=== PATIENT | female | born 1995 | race Caucasian/White ===

== ENCOUNTER → 2016-11-17 | Outpatient (CLI) | payer OTHER ==
[~2016-11-17] MED LIST: ACET50TA PO; ADVI200T PO; ANUS2.5C2 PR; DOCU10CA PO; MOM30SS PO; MOTR200T44 PO; PRENTAB40 PO; TYLE325T5 PO
== END ==
LOC: M SMT 15:18
PROVIDERS: ATTEND Specialist
DX: N93.8 Other specified abnormal uterine and vaginal bleeding (principal)

== ENCOUNTER → 2017-11-30 | Outpatient (CLI) | payer OTHER ==
[2017-11-30 13:43] LABS: BASO % 0.3 % (0.0-1.0); EOS # 0.1 10^3/uL (0.0-0.50); EOS % 1.7 % (0.0-3.0); HEMATOCRIT 39.4 % (36.0-47.0); HEMOGLOBIN 12.8 g/dl (12.0-15.5); IMMATURE GRANULOCYTE % 0.1 % (0-3.0); LYMPH # 1.8 10^3/uL (1.5-6.5); LYMPH % 23.6 % (24.0-44.0); MEAN CORPUSCULAR HGB CONC 32.5 g/dl (32.0-36.5); MEAN CORPUSCULAR VOLUME 92.3 fl (80.0-96.0); MONO # 0.6 10^3/uL (0.0-0.8); MONO % 7.9 % (0.0-5.0); NEUTROPHILS # 5.1 10^3/uL (1.8-7.7); NEUTROPHILS % 66.4 % (36.0-66.0); PLATELET COUNT, AUTOMATED 306 10^3/uL (150-450); RED BLOOD COUNT 4.27 10^6/uL (4.00-5.40); RED CELL DISTRIBUTION WIDTH 12.3 % (11.5-14.5); WHITE BLOOD COUNT 7.7 10^3/uL (4.0-10.0)
[2017-11-30 14:47] LABS: HEPATITIS C VIRUS ABY INDEX < 0.0 INDEX (<0.8)
[2017-11-30 14:47] LABS: HBsAg Prenatal NEGATIVE (NEGATIVE); HIV 1&2 SCREEN CENTAUR NEGATIVE (NEGATIVE); RUBELLA IgG QUALITATIVE IMMUNE (IMMUNE)
[2017-11-30 16:02] LABS: CHLAMYDIA DNA AMPLIFICATION NEGATIVE (NEGATIVE); GC DNA AMPLIFICATION NEGATIVE (NEGATIVE)
== END ==
LOC: M SMT 09:02
DX: Z36.89 Encounter for other specified antenatal screening (principal)
CPT/HCPCS: 86762

== ENCOUNTER 2018-01-31 14:34 | Day surgery (SDC) | payer OTHER ==
[2018-01-31 15:00] LABS: HEMATOCRIT 41.1 % (36.0-47.0); HEMOGLOBIN 13.8 g/dl (12.0-15.5); MEAN CORPUSCULAR HEMOGLOBIN 30.3 pg (27.0-33.0); MEAN CORPUSCULAR HGB CONC 33.6 g/dl (32.0-36.5); MEAN CORPUSCULAR VOLUME 90.3 fl (80.0-96.0); PLATELET COUNT, AUTOMATED 285 10^3/uL (150-450); RED BLOOD COUNT 4.55 10^6/uL (4.00-5.40); RED CELL DISTRIBUTION WIDTH 12.3 % (11.5-14.5)
[2018-01-31] MEDS: DOXYCYCLINE HYCLATE 100 MG TAB PO (15:00)
[2018-01-31] MEDS ORDERED: MIDAZOLAM INJ 2 MG/2 ML VIAL (J2250) As Ordered (15:13)
[2018-01-31] MEDS ORDERED: PROPOFOL 200 MG/20 ML VIAL As Ordered (15:13)
[2018-01-31] MEDS ORDERED: fentaNYL 100 MCG/2 ML INJECTION (J3010) As Ordered ×2 (15:13→16:12)
[2018-01-31] MEDS ORDERED: LIDOCAINE 2% INJ 100 MG/5 ML SYRINGE As Ordered (15:13)
[2018-01-31] MEDS ORDERED: LIDOCAINE 2% INJ 100 MG/5 ML SDV (FOR ANES.) As Ordered (15:15)
[2018-01-31] MEDS ORDERED: METOCLOPRAMIDE INJ 10MG/2ML VIAL (J2765) As Ordered (15:48)
[2018-01-31] MEDS ORDERED: ONDANSETRON 4MG/2ML VIAL (J2405) As Ordered (16:06)
[2018-01-31] MEDS ORDERED: dexameTHASONE 4 MG/ML 1ML VIAL (J1100) As Ordered ×2 (16:06)
[2018-01-31] MEDS ORDERED: PHENYLephrine HCL 500 MCG/5 ML (100MCG/ML) SYRINGE (J2370) As Ordered (16:16)
[2018-01-31] MEDS: miSOPROStol 200 MCG TAB (S0191) As Ordered (16:48)
[2018-01-31] MEDS ORDERED: HYDROmorphone HCL 2 MG/ML 1ML VIAL (J1170) As Ordered (16:56)
[2018-01-31] MEDS ORDERED: ONDANSETRON 4MG/2ML VIAL (J2405) IV (17:15)
[2018-01-31] MEDS ORDERED: LR 1,000 ML IV (17:15)
[2018-01-31] MEDS ORDERED: fentaNYL 100 MCG/2 ML INJECTION (J3010) IV (17:15)
[2018-01-31] MEDS: NORCO, ANEXSIA 5/325MG TABLET (HYDROcodone/ACETAMINOPHEN) PO (17:22)
[2018-01-31] MEDS ORDERED: PERCOCET 5MG/325MG TAB PO (17:30)
[2018-01-31] MEDS ORDERED: KETOROLAC 30 MG/ML VIAL (J1885) IV (18:00)
== END 2018-01-31 20:04 | disposition home or self-care (01) ==
LOC: M SDC 14:34
DX: O02.1 Missed abortion (principal); E66.9 Obesity, unspecified; Z68.41 Body mass index [BMI] 40.0-44.9, adult
CPT/HCPCS: 59821

== ENCOUNTER → 2018-02-21 | Outpatient (CLI) | payer OTHER ==
[~2018-02-21] MED LIST changes: -ACET50TA PO; +MAPA500T2 PO; +MISO200T56 PO; +PERCOCET PO
[2018-02-21 13:08] LABS: FREE T4 1.09 NG/DL (0.76-1.46); THYROID STIMULATING HORMONE 3.41 uIU/ML (0.358-3.740)
[2018-02-24 00:07] LABS: ANTI DOUBLE STRAND-DNA AB 1 IU/mL (0-9); ANTI THROMBIN 3 ANTIGEN IMMUNO 83 % (72-124); ANTI THROMBIN 3 FUNCT ACTIVITY 97 % (75-135); CARDIOLIPIN IGA ANTIBODY <9 APL U/mL (0-11); CARDIOLIPIN IGG ANTIBODY <9 GPL U/mL (0-14); CARDIOLIPIN IGM ANTIBODY 12 MPL U/mL (0-12); PROTEIN C FUNCTIONAL ACTIVITY 117 % (73-180); PROTEIN S FUNCTIONAL ACTIVITY 57 % (63-140); SSA SJOGRENS A <0.2 AI (0.0-0.9); SSB SJOGRENS B <0.2 AI (0.0-0.9)
== END ==
LOC: M ADAMS 08:59
PROVIDERS: ATTEND Obstetrics & Gynecology
DX: N96 Recurrent pregnancy loss (principal)

== ENCOUNTER → 2018-07-23 | Outpatient (CLI) | payer OTHER | LOC: M LAB 09:22 | PROVIDERS: ATTEND Obstetrics & Gynecology | DX: E28.9 Ovarian dysfunction, unspecified (principal) ==

== ENCOUNTER → 2018-08-24 | Outpatient (REF) | payer OTHER | LOC: M LABDRWAD 12:24 | PROVIDERS: ATTEND Obstetrics & Gynecology | DX: N96 Recurrent pregnancy loss (principal) ==

== ENCOUNTER → 2018-12-05 | Outpatient (REF) | payer OTHER | LOC: M LABDRWAD 16:00 | PROVIDERS: ATTEND Obstetrics & Gynecology | DX: N91.2 Amenorrhea, unspecified (principal) ==

== ENCOUNTER → 2018-12-25 | Outpatient (CLI) | payer OTHER ==
[~2018-12-25] MED LIST changes: +ISOVUE-370 76% 100ML VIAL (Q9967) As Ordered ONE
--- NOTE | 2018-12-25 17:11 | REP ---
Hysterosalpingography: 10 views. History: Secondary infertility. Findings: A normal shape and size the endometrial cavity is observed with contrast filling periods. Sequential films demonstrate bilateral and fairly symmetric filling of the isthmic and ampullary segments of the fallopian tubes. Bilateral peritoneal spillage is confirmed. No filling defect is seen within the endometrium. Impression: Bilateral tubal patency is confirmed. Normal hysterosalpingography. Fluoroscopy time is 0.8 minutes. Electronically Signed by Jon Melendez MD 12/25/2018 05:14 P
== END ==
LOC: M RADPRO 11:53
PROVIDERS: ATTEND Obstetrics & Gynecology
DX: N97.0 Female infertility associated with anovulation (principal)
CPT/HCPCS: 58340; 74740; Q9967

== ENCOUNTER → 2019-01-05 | Outpatient (REF) | payer OTHER ==
[~2019-01-05] MED LIST changes: -ISOVUE-370 76% 100ML VIAL (Q9967) As Ordered ONE
[2019-01-05 16:29] LABS: PROGESTERONE 10.79 NG/ML
== END ==
LOC: M LABDRWAD 15:56
PROVIDERS: ATTEND Obstetrics & Gynecology
DX: N96 Recurrent pregnancy loss (principal)

== ENCOUNTER → 2019-02-12 | Outpatient (CLI) | payer OTHER | LOC: M LAB 14:29 | PROVIDERS: ATTEND Obstetrics & Gynecology | DX: O36.80X0 Pregnancy with inconclusive fetal viability, not applicable or unspecified (principal); Z3A.00 Weeks of gestation of pregnancy not specified ==

== ENCOUNTER → 2019-02-15 | Outpatient (CLI) | payer OTHER | LOC: M LAB 09:53 | PROVIDERS: ATTEND Obstetrics & Gynecology | DX: O36.80X0 Pregnancy with inconclusive fetal viability, not applicable or unspecified (principal); Z3A.00 Weeks of gestation of pregnancy not specified ==

== ENCOUNTER → 2019-03-07 | Outpatient (CLI) | payer OTHER ==
[2019-03-07 13:35] LABS: BASO % 0.4 % (0.0-1.0); EOS # 0.1 10^3/uL (0.0-0.5); EOS % 0.9 % (0.0-3.0); HEMATOCRIT 40.7 % (36.0-47.0); HEMOGLOBIN 12.6 g/dl (12.0-15.5); LYMPH # 1.6 10^3/uL (1.5-5.0); LYMPH % 21.2 % (24.0-44.0); MEAN CORPUSCULAR HEMOGLOBIN 28.5 pg (27.0-33.0); MEAN CORPUSCULAR VOLUME 92.1 fl (80.0-96.0); MONO # 0.5 10^3/uL (0.0-0.8); MONO % 6.3 % (0.0-5.0); NEUTROPHILS # 5.2 10^3/uL (1.5-8.5); NEUTROPHILS % 70.1 % (36.0-66.0); PLATELET COUNT, AUTOMATED 310 10^3/uL (150-450); RED BLOOD COUNT 4.42 10^6/uL (4.00-5.40); WHITE BLOOD COUNT 7.4 10^3/uL (4.0-10.0)
[2019-03-07 14:23] LABS: HEPATITIS C VIRUS ABY INDEX < 0.0 INDEX (<0.8); HIV 1&2 SCREEN CENTAUR NEGATIVE (NEGATIVE); RUBELLA IgG QUALITATIVE IMMUNE (IMMUNE)
[2019-03-07 15:05] LABS: CHLAMYDIA DNA AMPLIFICATION NEGATIVE (NEGATIVE); GC DNA AMPLIFICATION NEGATIVE (NEGATIVE)
== END ==
LOC: M PLALAB 08:54
PROVIDERS: ATTEND Obstetrics & Gynecology
DX: Z34.01 Encounter for supervision of normal first pregnancy, first trimester (principal)

== ENCOUNTER → 2019-04-30 | Outpatient (CLI) | payer OTHER | LOC: M WHC 11:22 | PROVIDERS: ATTEND Obstetrics & Gynecology | DX: Z34.01 Encounter for supervision of normal first pregnancy, first trimester (principal) ==

== ENCOUNTER → 2019-06-01 | Outpatient (CLI) | payer OTHER ==
--- NOTE | 2019-06-01 17:33 | REP ---
OB ULTRASOUND: Real-time sonographic evaluation of the gravid uterus is performed. There is a single living intrauterine gestation. Estimated gestational age based on today's ultrasound 19 weeks 3 days, EDC 10/23/2019. BPD 42 mm = 18 weeks 5 days HC 168 mm = 19 weeks 3 days AC 142 mm = 19 weeks 4 days FL 32 mm = 20 weeks 0 days HC/AC ratio 1.18, within normal range of 1.06 to 1.25. Cephalic index 0.67 is slightly below normal range of 0.70 to 0.86. Estimated weight 309 grams, 57th percentile. Cervix is closed and measures 4.2 cm in length. heart rate 153 beats per minute. SEEN/GROSSLY UNREMARKABLE Lateral ventricles yes Posterior fossa yes Upper lip no Four-chamber heart no LVOT no RVOT no Stomach yes Cord insertion yes Three vessel cord yes Kidneys yes Bladder yes Spine no position: Breech Placenta: Posterior and grade 1 with no previa or abruption. Amniotic fluid: Within normal limits.
== END ==
LOC: M WHC 09:47
PROVIDERS: ATTEND Obstetrics & Gynecology
DX: Z34.01 Encounter for supervision of normal first pregnancy, first trimester (principal)

== ENCOUNTER → 2019-06-29 | Outpatient (CLI) | payer OTHER ==
--- NOTE | 2019-06-29 17:45 | REP ---
OB ULTRASOUND: Real-time sonographic evaluation of gravid uterus performed. There is a single living intrauterine gestation. The estimated gestational age is 23 weeks 6 days, EDC 10/20/2019. Today's measurements indicate appropriate growth. BPD 57 mm = 23 weeks 3 days, 38th percentile HC 214 mm = 23 weeks 3 days, 35th percentile AC 181 mm = 22 weeks 6 days, 29th percentile Femur length 45 mm = 24 weeks 6 days, 70th percentile HC/AC ratio 1.18 within normal range, 1.03-1.22. Estimated weight 621 grams, 39th percentile. Cervix is closed and measures 3.5 cm in length. heart rate 156 beats per minute. Today's measurements indicate appropriate growth. Visualized anatomy includes upper lip, left ventricular outflow tract, stomach, cord insertion, kidneys, bladder, and spine, which are all grossly unremarkable. position vertex. Placenta posterior and grade 1 with no previa or abruption. Amniotic fluid within normal limits.
== END ==
LOC: M WHC 08:18
PROVIDERS: ATTEND Advanced Practice Midwife
DX: Z34.82 Encounter for supervision of other normal pregnancy, second trimester (principal); Z3A.23 23 weeks gestation of pregnancy

== ENCOUNTER → 2019-07-25 | Outpatient (REF) | payer OTHER ==
[2019-07-25 11:34] LABS: HEMATOCRIT 33.9 % (36.0-47.0); HEMOGLOBIN 10.7 g/dl (12.0-15.5); MEAN CORPUSCULAR HEMOGLOBIN 28.7 pg (27.0-33.0); MEAN CORPUSCULAR HGB CONC 31.6 g/dl (32.0-36.5); MEAN CORPUSCULAR VOLUME 90.9 fl (80.0-96.0); PLATELET COUNT, AUTOMATED 271 10^3/uL (150-450); RED BLOOD COUNT 3.73 10^6/uL (4.00-5.40); WHITE BLOOD COUNT 7.2 10^3/uL (4.0-10.0)
== END ==
LOC: M PLALAB 08:46
PROVIDERS: ATTEND Advanced Practice Midwife
DX: O99.212 Obesity complicating pregnancy, second trimester (principal)

== ENCOUNTER → 2019-08-28 | Outpatient (CLI) | payer OTHER ==
[~2019-08-28] MED LIST changes: +DOCU100C16 PO; +ESGI1CAP PO; +IBUP80TA PO
[2019-08-28 17:30] LABS: HEMATOCRIT 33.6 % (36.0-47.0); HEMOGLOBIN 10.8 g/dl (12.0-15.5); MEAN CORPUSCULAR HEMOGLOBIN 28.9 pg (27.0-33.0); MEAN CORPUSCULAR HGB CONC 32.1 g/dl (32.0-36.5); MEAN CORPUSCULAR VOLUME 89.8 fl (80.0-96.0); PLATELET COUNT, AUTOMATED 282 10^3/uL (150-450); RED BLOOD COUNT 3.74 10^6/uL (4.00-5.40)
[2019-08-28 17:49] LABS: CREATININE,RANDOM URINE 60.7 MG/DL; TOTAL PROTEIN,RANDOM URINE 11.1 MG/DL (0.0-12.0)
[2019-08-28 17:55] LABS: ALT/SGPT 29 U/L (12-78); BILIRUBIN,TOTAL 0.2 MG/DL (0.2-1.0); CREATININE FOR GFR 0.65 MG/DL (0.55-1.30); GLOMERULAR FILTRATION RATE > 60.0 (>60); LDH LACTATE DEHYDROGENASE 67 U/L (84-246); URIC ACID 3.8 MG/DL (2.6-6.0)
== END ==
LOC: M PLALAB 14:54
PROVIDERS: ATTEND Specialist
DX: O16.9 Unspecified maternal hypertension, unspecified trimester (principal)

== ENCOUNTER → 2019-08-29 | Outpatient (CLI) | payer OTHER ==
--- NOTE | 2019-08-29 23:23 | REP ---
REASON: Followup growth. Multiple ultrasonographic images of the gravid uterus show a single living intrauterine gestation in the cephalic presentation. Doppler interrogation of the heart shows a heart rate of 136 beats per minute. The placenta is posterior and not low lying. The subjective amniotic fluid volume is within normal limits. The cervix measures 3.9 cm in length and is closed. Evaluation of the maternal adnexal spaces showed no abnormalities. CHART: BPD 8.5 cm = 34 weeks 3 days HC 31.5 cm = 35 weeks 2 days AC 30.6 cm = 34 weeks 4 days FL 6.4 cm = 33 weeks 1 day The estimated weight is 2379 grams, which is at the 87th percentile for a 32-week 1-day gestational age and 77th percentile for a 32-week 4-day gestational age. The calculated amniotic fluid index is 11.3 with an expected range 8.6 to 24.2. IMPRESSION: Single living intrauterine gestation, as described above, with an estimated gestational age of 33 weeks 6 days via composite criteria and an estimated date of delivery of 10/11/2019 by today's exam.
== END ==
LOC: M PLAIMG 13:54
PROVIDERS: ATTEND Advanced Practice Midwife
DX: O13.3 Gestational [pregnancy-induced] hypertension without significant proteinuria, third trimester (principal); Z3A.33 33 weeks gestation of pregnancy

== ENCOUNTER 2019-09-05 10:14 | Outpatient (CLI) | payer OTHER ==
[~2019-09-05] VITALS: Ht 162.6 cm; Wt 135.0 kg
[2019-09-05] VITALS (19 sets, daily range): BP systolic 106–159; BP diastolic 61–118
[~2019-09-05 10:14] MED LIST changes: -DOCU100C16 PO; -ESGI1CAP PO; -IBUP80TA PO
[2019-09-05] MEDS ORDERED: ESGI1CAP PO (10:34)
[2019-09-05] MEDS ORDERED: BETAMETHASONE SOLUSPAN 6MG/ML 5ML VIAL (J0702 PER 3MG) IM ONE (11:15)
[2019-09-05] MEDS ORDERED: ACETAMINOPHEN 500 MG TAB PO ONE (11:15)
[2019-09-05 12:12] LABS: HEMATOCRIT 33.2 % (36.0-47.0); HEMOGLOBIN 10.5 g/dl (12.0-15.5); MEAN CORPUSCULAR HEMOGLOBIN 28.2 pg (27.0-33.0); MEAN CORPUSCULAR HGB CONC 31.6 g/dl (32.0-36.5); PLATELET COUNT, AUTOMATED 278 10^3/uL (150-450); RED BLOOD COUNT 3.73 10^6/uL (4.00-5.40); WHITE BLOOD COUNT 7.5 10^3/uL (4.0-10.0)
[2019-09-05 12:35] LABS: CREATININE,RANDOM URINE 42.6 MG/DL; TOTAL PROTEIN,RANDOM URINE 10.2 MG/DL (0.0-12.0)
[2019-09-05 12:40] LABS: ALT/SGPT 35 U/L (12-78); BILIRUBIN,TOTAL 0.1 MG/DL (0.2-1.0); CREATININE FOR GFR 0.58 MG/DL (0.55-1.30); GLOMERULAR FILTRATION RATE > 60.0 (>60); LDH LACTATE DEHYDROGENASE 71 U/L (84-246)
--- NOTE | 2019-09-05 16:17 | IPN ---
DATE: 09/05/2019 Clarissa is a 24-year-old, 5, para 2-0-2-2. She is at 33 weeks and 4/7 days with an estimated date of confinement (EDC) of 10/20/2019 based on last menstrual period, confirmed by first trimester ultrasound. She was sent to labor and delivery following appointment in the office for continued blood pressure monitoring and observation. She was seen by Dr. Hayes in the office with a complaint of a headache and elevated blood pressures. She had a care initiated at [facility] in the first trimester. course is complicated by a history of gestational hypertension and a current diagnosis of hypertension. She does report that her headache has resolved following administration of Tylenol. She denies visual disturbances, epigastric pain, right upper quadrant discomfort. She denies leakage of fluid, vaginal bleeding and contractions. The fetus has been active. OBSTETRICAL HISTORY: October 2013, spontaneous vaginal delivery, male fetus, 9 pounds 8 ounces, following induction. 12/2014, 37 week delivery, 6 pound 7 ounce female, vaginal delivery following induction for gestational hypertension. November 2016, spontaneous miscarriage. January 2018, spontaneous miscarriage. PAST MEDICAL HISTORY: Gestational hypertension. SURGERIES: Appendectomy, tonsillectomy, adenectomy, D and E. FAMILY HISTORY: Kidney disease, psychiatric disorder, thyroid dysfunction. SOCIAL HISTORY: She is . She is a nonsmoker. Denies alcohol and drug use. No history of sexually transmitted infections. ALLERGIES: To CEFZIL. CURRENT MEDICATIONS: - vitamins - Esgic as needed OBJECTIVE: Upon arrival to labor and delivery, she was found to have normotensive blood pressure. She did have two isolated episodes of severe range blood pressure during a time where she was crying and upset. Following that time for the last 4 hours her blood pressures have been in the normotensive range. Blood pressures range 120s/70s. She is alert and oriented times three. She is in no apparent distress. heart rate is 150 with moderate variability, positive accelerations, negative decelerations. There is no contractions. Sterile vaginal exam was deferred. Labs were ordered. Her pre-eclamptic profile remains stable. Her AST 22, ALT 35, LDH 71, uric acid 4.0, creatinine is 0.58. Her spot urine for protein with a creatinine protein ratio of 0.24 it is slightly increased from her labs 8 days ago. Her CBC with a hemoglobin of 10.5, hematocrit 33.2 and platelets are 278. She did receive one injection of betamethasone 12 mg IM. ASSESSMENT: Intrauterine at 33-4/7 days, heart rate category 1, gestational hypertension. PLAN: Per consult with Dr. Russell Glover as well as Dr. Julien Hayes, may discharge the patient home today. She is to return to labor and delivery at 12 noon tomorrow for her second betamethasone injection. Dr. 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 She is to keep her next scheduled appointment. I did review signs and symptoms of labor, movement counts, danger signs related to worsening preeclampsia/gestational hypertension. I reviewed access to care. The patient has had all her questions answered and desires discharge home.
== END 2019-09-05 16:03 | disposition home or self-care (01) ==
LOC: M LDO 10:14
PROVIDERS: ATTEND Advanced Practice Midwife
DX: O13.3 Gestational [pregnancy-induced] hypertension without significant proteinuria, third trimester (principal); Z3A.33 33 weeks gestation of pregnancy
CPT/HCPCS: 36415; 59025; 82247; 82565; 82570; 83615; 84156; 84450; 84460; 84550; 85027; 87081; 96372; G0378; G0463; J0702

== ENCOUNTER → 2019-09-18 | Outpatient (CLI) | payer OTHER ==
[~2019-09-18] MED LIST changes: +DOCU100C16 PO; +ESGI1CAP PO; +IBUP80TA PO
--- NOTE | 2019-11-09 11:32 | REP ---
OBSTETRIC ULTRASOUND This report was delayed due to a protracted episode of network disruption experienced by this facility. FINDINGS: Scanning through the gravid uterus demonstrates a viable single intrauterine gestation in a cephalic lie. The placenta is posterior grade 2 without evidence of placenta previa or abruption. Amniotic fluid is subjectively normal. ABENA is normal at 12.66 cm. heart rate is recorded at 152 beats per minute. Left-sided stomach, kidneys, and bladder are identified today. These structures are unremarkable. BIOMETRY CHART: BPD 92 mm 37 weeks 3 days Head Circumference 329 mm 37 weeks 3 days Abdominal Circumference 322 mm 36 weeks 2 days Femur Length 68 mm 35 weeks 0 days Humeral Length 60 mm 35 weeks 1 day Estimated Weight 2851 g 68th percentile IMPRESSION: Viable single intrauterine gestation at 36 weeks 4 days. By todays criteria, estimated date of delivery (LIZZY) 10/12/2019. MTDD
== END ==
LOC: M WHC 17:48
PROVIDERS: ATTEND Advanced Practice Midwife
DX: O10.919 Unspecified pre-existing hypertension complicating pregnancy, unspecified trimester (principal)

== ENCOUNTER → 2019-09-19 | Outpatient (REF) | payer OTHER | LOC: M SFHCWAGY 09:25 | PROVIDERS: ATTEND Advanced Practice Midwife | DX: Z34.83 Encounter for supervision of other normal pregnancy, third trimester (principal) ==

== ENCOUNTER 2019-09-29 08:15 | Inpatient (IN) | payer OTHER ==
[~2019-09-29 08:15] MED LIST changes: -DOCU100C16 PO; -IBUP80TA PO
[2019-09-29] MEDS ORDERED: miSOPROStol 50 MCG 1/2 TAB (S0191) As Ordered ONE ×4 (09:39→22:11)
[2019-09-29] MEDS ORDERED: LABETALOL 200 MG TAB As Ordered ONE (20:44)
[2019-09-30] MEDS ORDERED: OXYTOCIN 30 UNITS IN 0.9% NaCl 500ML IV BAG (J2590) As Ordered ONE (02:22)
[2019-09-30] MEDS ORDERED: LABETALOL 200 MG TAB As Ordered ONE (09:46)
[2019-09-30] MEDS ORDERED: ACETAMINOPHEN 500 MG TAB As Ordered ONE (11:53)
[2019-09-30] MEDS ORDERED: FENTANYL 2MCG/ML ROPIVACAINE 0.2% IN 0.9% NACL 100ML IVBAG As Ordered ONE ×2 (13:19→22:31)
[2019-09-30] MEDS ORDERED: ePHEDrine SULFATE 25 MG/5 ML(5MG/ML) SYRINGE As Ordered ONE (16:55)
[2019-10-01] MEDS ORDERED: CLINDAMYCIN 900 MG/50 ML PREMIX BAG As Ordered ONE (06:37)
[2019-10-01] MEDS ORDERED: BICITRA 30ML SOLN UDC As Ordered ONE (06:38)
[2019-10-01] MEDS ORDERED: ONDANSETRON 4MG/2ML VIAL As Ordered ONE ×2 (08:05→11:13)
[2019-10-01] MEDS ORDERED: PHENYLephrine HCL 500 MCG/5 ML (100MCG/ML) SYRINGE (J2370) As Ordered ONE (08:05)
[2019-10-01] MEDS ORDERED: OXYTOCIN INJ 10 UNITS/ML VIAL (J2590) As Ordered ONE (08:05)
[2019-10-01] MEDS ORDERED: fentaNYL 100 MCG/2 ML INJECTION (J3010) As Ordered ONE (08:05)
[2019-10-01] MEDS ORDERED: dexameTHASONE 4 MG/ML 1ML VIAL (J1100 PER 1MG) As Ordered ONE (08:05)
[2019-10-01] MEDS ORDERED: LIDOCAINE 2% W/EPINEPHRINE 20ML VIAL **PRES FREE As Ordered ONE (08:05)
[2019-10-01] MEDS ORDERED: MORPHINE PRES-FREE INJ 10 MG/10 ML VIAL (J2274) As Ordered ONE (08:21)
[2019-10-01] MEDS ORDERED: KETOROLAC 60MG 2ML VIAL As Ordered ONE (08:29)
[2019-10-01] MEDS ORDERED: OXYTOCIN 30 UNITS IN 0.9% NaCl 500ML IV BAG (J2590) As Ordered ONE (09:21)
[2019-10-01] MEDS ORDERED: METOCLOPRAMIDE INJ 10MG/2ML VIAL (J2765 PER 1) As Ordered ONE (12:27)
[2019-10-01] MEDS ORDERED: KETOROLAC 30 MG/ML 1ML VIAL As Ordered ONE (19:27)
[2019-10-01] MEDS ORDERED: AZTREONAM ONE (21:00)
[2019-10-02] MEDS ORDERED: KETOROLAC 30 MG/ML 1ML VIAL As Ordered ONE ×3 (01:02→13:32)
[2019-10-02] MEDS ORDERED: MEASLES,MUMPS,RUBELLA VACCINE INJ (MMR-II) (90707) SQ SCH (16:15)
[2019-10-02] MEDS ORDERED: MOM 30ML SUSPENSION UDC PO PRN (16:15)
[2019-10-02] MEDS ORDERED: DOCUSATE SODIUM 100 MG CAP PO PRN (16:15)
[2019-10-02] MEDS ORDERED: PERCOCET 5MG/325MG TAB PO PRN ×2 (16:15)
[2019-10-02] MEDS ORDERED: RHOGAM 300 MCG (1500 IU) INJ (J2790) IM SCH (16:15)
[2019-10-02] MEDS ORDERED: METHYLERGONOVINE MALEATE 0.2 MG TAB PO PRN (16:15)
[2019-10-02] MEDS ORDERED: ANUSOL HC CREAM 30GM TOP PRN (16:15)
[2019-10-02] MEDS ORDERED: PERCOCET 5MG/325MG TAB As Ordered ONE (19:01)
[2019-10-02] MEDS ORDERED: IBUPROFEN 800 MG TAB ONE (21:27)
[2019-10-02] MEDS: IBUPROFEN 800 MG TAB PO SCH (21:30)
[2019-10-02 22:00] VITALS: BP 124/70
[2019-10-03 02:00] VITALS: BP 122/59
[2019-10-03 06:00] VITALS: BP 119/56
[2019-10-03] MEDS: IBUPROFEN 800 MG TAB PO SCH (06:05)
[2019-10-03] MEDS ORDERED: PERCOCET PO (08:11)
[2019-10-03] MEDS ORDERED: DOCU100C16 PO (08:11)
[2019-10-03] MEDS ORDERED: IBUP80TA PO (08:11)
[2019-10-03 11:55] LABS: HEMATOCRIT 26.5 % (36.0-47.0); HEMOGLOBIN 8.1 g/dl (12.0-15.5); MEAN CORPUSCULAR HEMOGLOBIN 27.7 pg (27.0-33.0); MEAN CORPUSCULAR HGB CONC 30.6 g/dl (32.0-36.5); MEAN CORPUSCULAR VOLUME 90.8 fl (80.0-96.0); PLATELET COUNT, AUTOMATED 238 10^3/uL (150-450); RED BLOOD COUNT 2.92 10^6/uL (4.00-5.40); WHITE BLOOD COUNT 7.1 10^3/uL (4.0-10.0)
[2019-10-07 23:44] LABS: HEMATOCRIT 30.3 % (36.0-47.0); HEMOGLOBIN 9.8 g/dl (12.0-15.5); MEAN CORPUSCULAR HGB CONC 32.3 g/dl (32.0-36.5); MEAN CORPUSCULAR VOLUME 86.6 fl (80.0-96.0); PLATELET COUNT, AUTOMATED 282 10^3/uL (150-450); WHITE BLOOD COUNT 7.6 10^3/uL (4.0-10.0)
--- NOTE | 2019-11-19 14:18 | HPE ---
DATE OF ADMISSION: 09/29/2019 REASON FOR ADMISSION: Induction of labor HISTORY OF PRESENT ILLNESS: Ms. Oh is a 24-year-old, 5, para 2, who presents at 37 weeks 0 days estimated gestational age for induction of labor secondary to gestational hypertension. Her course has been remarkable for gestational hypertension. She was diagnosed at 32 weeks. She was started on labetalol 200 mg twice a day secondary to severely elevated blood pressures. She has been normotensive on the oral labetalol. Otherwise, her course has been unremarkable. She initiated care in the first trimester; it has been appropriate throughout. Her gestational hypertension was managed with antepartum testing weekly. PAST MEDICAL HISTORY: None PAST SURGICAL HISTORY: She has had an appendectomy, tonsillectomy, adenoidectomy and dilation and evacuation. MEDICATIONS: Include labetalol. ALLERGIES: She has allergies to Cefzil. SOCIAL HISTORY: She is a mother of two, lives with her children and her . She is a nonsmoker. Denies any alcohol, tobacco or drug use during her . OBSTETRICAL HISTORY: She is a 5, para 2. She has had two term vaginal deliveries. She is proven at 9 pounds, 8 ounces. Her second was also complicated by gestational hypertension. PHYSICAL EXAMINATION: Her vital signs are stable. She is afebrile. She has a category 1 heart tracing, heart rate 150s, moderate variability, spontaneous accelerations, no decelerations. Rare contractions on tocometer. General appearance: She is well appearing, in no acute distress. Lungs clear to auscultation bilaterally. Cardiovascular: Heart regular rate and rhythm. Her abdomen is soft, , nontender. Estimated weight (EFW) 32 __ gm. Cervical examination: She was fingertip, fingertip, long and in minus 3 station. LABORATORY: Her blood type is A positive. Hepatitis screen is negative. RPR is nonreactive. Rubella is immune. Hepatitis C is negative. Chlamydia and gonorrhea screen is negative. She is GBS negative. ASSESSMENT: 1. Ms. Oh is a 24-year-old 5, para 2, at 37 weeks 0/7 estimated gestational age for induction of labor secondary to gestational hypertension. 2. Reassuring status PLAN: 1. Admit to labor and delivery. Complete blood count (CBC), RPR, type and screen. 2. The patient has been thoroughly counseled in regards to induction of labor. I discussed medications, as well as procedures performed in labor and delivery. She has also been verbally consented for emergency surgery, blood products, anesthesia and desires to proceed with admission. 3. Will initiation of induction of labor with 50 mcg of oral Misoprostol. MTDD
[2019-12-23 12:48] LABS: CORD GAS PCO2 A 49.8 mmHg; CORD GAS PH A 7.309 UNITS; CORD GAS PO2 A 16.9 mmHg
[2019-12-23 12:49] LABS: CORD GAS ABE A -2.4; CORD GAS ABE V -0.6; CORD GAS HCO3 A 24.5 MEQ/L; CORD GAS HCO3 V 27.6 MEQ/L; CORD GAS O2 SAT V 28.3 %; CORD GAS PCO2 V 60.3 mmHg; CORD GAS PH V 7.279 UNITS; CORD GAS PO2 V 16.1 mmHg; CORD GAS SBC A 21.6 MEQ/L; CORD GAS SBC V 22.2 MEQ/L; CORD GAS TCO2 V 29.5 MEQ/L
--- NOTE | 2019-12-24 22:36 | ROOPDOC ---
[facility] Report Of Operation Report of Operation DATE OF OPERATION: 10/01/2019 SURGEON: Mary Grace Pittman M.D. DIESEL LOCOMOTIVE FIRER: Magalis Carney ( essential for surgery for tissue retractions, exposure and delivery of ) PROCEDURE: Primary section PREOPERATIVE DIAGNOSIS: 1. Arrest of dilation POSTOPERATIVE DIAGNOSIS: 1. Arrest of dilation ANESTHESIA: Epidural]] ESTIMATED BLOOD LOSS: 600 mL URINE OUTPUT: 150 mL INTRAVENOUS FLUIDS: 1500 mL of lactated Ringer's solution PREOPERATIVE ANTIBIOTICS:. 2 g of Ancef 500 azithromycin OPERATIVE FINDINGS: Liveborn male Apgars 8 and 9 SPECIMENS: Cord gases DESCRIPTION OF PROCEDURE: After informed consent was obtained and written consent was reviewed. The patient was brought to the operating room where she was then placed in the supine position with a left lateral tilt. Wharton catheter was previously placed and to gravity. Patient was then prepped and draped in the normal sterile fashion. A timeout operating room was performed identifying the patient, procedure be performed as well as drug allergies. Anesthesia was tested and deemed to be adequate. Pfannenstiel skin incision was made and this was carried down to the underlying rectus fascia. The fascia was then scored and this incision was extended bilaterally. The fascia was then dissected off the underlying rectus muscle superiorly and inferiorly. The rectus muscles were then in the midline. The peritoneum is then entered. Vesicouterine peritoneum was then tented and excised and a bladder flap was created. Mobius retractor was then placed. Next, a curvilinear incision was then made in the lower uterine segment. The head was brought to the level of the incision atraumatically and delivered along the shoulders and corpus. The cord was clamped x2. The infant was brought over to the warmer with a good cry. Placenta was drained and delivered grossly intact. The uterus was cleared of all clots and debris and the uterine incision was then closed using 0 Vicryl in a running locking fashion followed by a second layer for imbrication in a running nonlocking fashion. The abdomen was suctioned. Surgical sites reinspected and noted be hemostatic. The retractor was then removed. The anterior peritoneum was then reapproximated with 3-0 Vicryl. The rectus muscles were reapproximated 3-0 Vicryl. The fascia was then closed using 0 Vicryl in a running nonlocking fashion. The subcutaneous tissues was then irrigated and suctioned. Several subdermal stitch is placed using 3-0 Vicryl and the skin was closed with 4-0 Monocryl and subcuticular fashion. This incision was then cleaned and dried and was dressed. The patient was then taken to recovery in stable condition. All counts were correct. My legal document assistant Mrs. Carney played in an essential role during the operation.She assisted with tissue identification retraction, delivery of the , as well as wound closure. MARY GRACE PITTMAN MD. Dec 24, 2019 22:36
--- NOTE | 2019-12-24 22:40 | DS.PDOC ---
Discharge Summary General Date of Admission Sep 29, 2019 at 08:15 Date of Discharge 10/03/2019 Attending Physician: ROBYN CARMICHAEL MD. Discharge Summary PROCEDURES PERFORMED DURING STAY: 1. Epidural 2. section. ADMITTING DIAGNOSES: 1. Gestational hypertension. DISCHARGE DIAGNOSES: 1. Gestational hypertension. COMPLICATIONS/CHIEF COMPLAINT: Induction Of Labor. HISTORY OF PRESENT ILLNESS: Mrs. Oh is a 24-year-old 5 para 2 presented at 37 weeks for induction labor secondary to gestational hypertension. She had arrest of dilation and underwent an uncomplicated section productive of a liveborn male Apgars 8 and 9. Estimated blood loss was 600 mL. She did well postoperatively by postoperative day #2 had met all discharge criteria is as discharged home in stable condition.. HOSPITAL COURSE: Uncomplicated. DISCHARGE MEDICATIONS: Please see below. ALLERGIES: Please see below. PHYSICAL EXAMINATION ON DISCHARGE: VITAL SIGNS: Please see below. GENERAL: Well-appearing ABDOMINAL EXAMINATION: Appropriately tender. Incision was dressed EXTREMITIES: With Tenderness SKIN: Normal NEUROLOGICAL EXAMINATION: Normal PSYCHIATRIC EXAMINATION: Appropriate LABORATORY DATA: Please see below. ACTIVITY: As tolerated. DIET: Regular DISCHARGE PLAN: Home DISPOSITION: 01 Home, Self-Care. DISCHARGE INSTRUCTIONS: 1. Follow-up in 2 weeks. 2.Report severe pain heavy vaginal bleeding or fever. DISCHARGE CONDITION: Stable. Discharge Medications Scheduled Ibuprofen (Ibuprofen) 800 Mg Tablet, 800 MG PO Q8H Pnv No.95/Ferrous Fum/Folic AC ( Formula Tablet) 1 Tab Tab, 1 TAB PO DAILY, (Reported) Scheduled PRN Butalb/Acetaminophen/Caffeine (Esgic Capsule) 1 Each Capsule, 1 CAP PO Q6HP PRN for HEADACHE, (Reported) Docusate Sodium (Docusate Sodium) 100 Mg Capsule, 100 MG PO BID PRN for CONSTIPATION Oxycodone/Acetaminophen (Oxycodone-Acetaminophen 5-325) 1 Each Tablet, 1-2 TAB PO Q6HP PRN for PAIN LEVEL 6-10 Allergies Coded Allergies: cefprozil (Verified Allergy, Unknown, HIVES, 09/05/19) AMOX [place] ROBYN CARMICHAEL MD. Dec 24, 2019 22:40
== END 2019-10-03 13:20 | disposition home or self-care (01) | DRG 788 ==
LOC: M OBS 08:15
PROVIDERS: ADMIT Obstetrics & Gynecology; ATTEND Obstetrics & Gynecology
PROC: 10D00Z1 Extraction of Products of Conception, Low, Open Approach (ICD-10-PCS; principal; 2019-10-01)
DX: O13.4 Gestational [pregnancy-induced] hypertension without significant proteinuria, complicating childbirth (principal); Z37.0 Single live birth; Z3A.37 37 weeks gestation of pregnancy

== ENCOUNTER → 2020-03-26 | Outpatient (REF) | payer OTHER ==
[~2020-03-26] MED LIST changes: +DOCU100C16 PO; +IBUP80TA PO
== END ==
LOC: M SFHCWAGY 12:50
PROVIDERS: ATTEND Obstetrics & Gynecology
DX: Z01.419 Encounter for gynecological examination (general) (routine) without abnormal findings (principal)

== ENCOUNTER → 2020-04-25 | Outpatient (REF) | payer OTHER | LOC: M PLALAB 15:59 | PROVIDERS: ATTEND Advanced Practice Midwife | DX: N91.2 Amenorrhea, unspecified (principal) ==

== ENCOUNTER → 2020-04-25 | Outpatient (CLI) | payer OTHER | LOC: M LAB 16:52 | PROVIDERS: ATTEND Advanced Practice Midwife | DX: N91.2 Amenorrhea, unspecified (principal) ==

== ENCOUNTER → 2020-04-27 | Outpatient (CLI) | payer OTHER | LOC: M LAB 15:58 | PROVIDERS: ATTEND Advanced Practice Midwife | DX: N91.2 Amenorrhea, unspecified (principal) ==

== ENCOUNTER → 2020-04-29 | Outpatient (CLI) | payer OTHER ==
--- NOTE | 2020-04-29 14:12 | REP ---
INDICATION: DATING AND VIABILITY. COMPARISON: None. TECHNIQUE: Transabdominal and transvaginal scanning or performed. FINDINGS: Scanning demonstrates a single living intrauterine gestation within the sac in the uterine fundus. heart rate is recorded at 121 beats per minute. The crown-rump length of the embryonic pole is 8 mm. This corresponds with a 6 week 5 day gestational age estimate. No extra uterine abnormality is observed. A yolk sac is seen. IMPRESSION: Viable single intrauterine gestation at 6 weeks 5 days by crown-rump length. LIZZY by sonography 18 December 2020. No complication is identified. <Electronically signed by Sundar Melendez > 04/29/20 [id number]
== END ==
LOC: M WHC 08:03
PROVIDERS: ATTEND Advanced Practice Midwife
DX: Z34.82 Encounter for supervision of other normal pregnancy, second trimester (principal)

== ENCOUNTER → 2020-05-01 | Outpatient (REF) | payer OTHER | LOC: M PLALAB 12:14 | PROVIDERS: ATTEND Advanced Practice Midwife | DX: O02.81 Inappropriate change in quantitative human chorionic gonadotropin (hCG) in early pregnancy (principal) ==

== ENCOUNTER → 2020-06-02 | Outpatient (REF) | payer OTHER ==
[2020-06-02 14:14] LABS: HEMATOCRIT 36.8 % (36.0-47.0); HEMOGLOBIN 11.6 g/dl (12.0-15.5); MEAN CORPUSCULAR HGB CONC 31.5 g/dl (32.0-36.5); MEAN CORPUSCULAR VOLUME 82.3 fl (80.0-96.0); PLATELET COUNT, AUTOMATED 337 10^3/uL (150-450); RED BLOOD COUNT 4.47 10^6/uL (4.00-5.40); WHITE BLOOD COUNT 8.3 10^3/uL (4.0-10.0)
[2020-06-02 16:51] LABS: ALBUMIN 3.7 GM/DL (3.2-5.2); ALT/SGPT 21 U/L (12-78); BILIRUBIN,TOTAL 0.2 MG/DL (0.2-1.0); BLOOD UREA NITROGEN 7 MG/DL (7-18); CALCIUM LEVEL 9.4 MG/DL (8.5-10.1); CARBON DIOXIDE LEVEL 24 MEQ/L (21-32); CHLORIDE LEVEL 105 MEQ/L (98-107); CREATININE FOR GFR 0.63 MG/DL (0.55-1.30); GLOMERULAR FILTRATION RATE > 60.0 (>60); GLUCOSE, FASTING 88 MG/DL (70-100); POTASSIUM SERUM 4.2 MEQ/L (3.5-5.1); SODIUM LEVEL 138 MEQ/L (136-145); TOTAL PROTEIN 7.9 GM/DL (6.4-8.2)
[2020-06-02 17:05] LABS: HEPATITIS B SURFACE ANTIGEN NEGATIVE (NEGATIVE)
[2020-06-02 17:32] LABS: HIV 1&2 SCREEN CENTAUR NEGATIVE (NEGATIVE)
[2020-06-04 18:08] LABS: HEMOGLOBIN A 97.8 % (96.4-98.8); HEMOGLOBIN A2 2.2 % (1.8-3.2)
== END ==
LOC: M LAB REF 13:48
PROVIDERS: ATTEND Legal Medicine
DX: N91.1 Secondary amenorrhea (principal)

== ENCOUNTER → 2021-04-17 | Outpatient (REF) | payer OTHER ==
[2021-04-17 17:09] LABS: HEMATOCRIT 35.9 % (36.0-47.0); HEMOGLOBIN 10.8 g/dl (12.0-15.5); MEAN CORPUSCULAR HEMOGLOBIN 23.8 pg (27.0-33.0); MEAN CORPUSCULAR HGB CONC 30.1 g/dl (32.0-36.5); MEAN CORPUSCULAR VOLUME 79.1 fl (80.0-96.0); PLATELET COUNT, AUTOMATED 389 10^3/uL (150-450); RED BLOOD COUNT 4.54 10^6/uL (4.00-5.40); WHITE BLOOD COUNT 8.5 10^3/uL (4.0-10.0)
[2021-04-17 17:42] LABS: BLOOD UREA NITROGEN 11 MG/DL (7-18); CALCIUM LEVEL 9.9 MG/DL (8.5-10.1); CARBON DIOXIDE LEVEL 28 MEQ/L (21-32); CHLORIDE LEVEL 105 MEQ/L (98-107); CREATININE FOR GFR 0.85 MG/DL (0.55-1.30); FERRITIN 10 NG/ML (8-252); FREE T4 1.23 NG/DL (0.76-1.46); GLOMERULAR FILTRATION RATE > 60.0 (>60); GLUCOSE, FASTING 78 MG/DL (70-100); IRON (FE) 31 UG/DL (50-170); PERCENT SATURATION 6.5 % (13.2-45.0); POTASSIUM SERUM 4.1 MEQ/L (3.5-5.1); SODIUM LEVEL 138 MEQ/L (136-145); TOTAL IRON BINDING CAPACITY 475 UG/DL (250-450)
== END ==
LOC: M LAB REF 16:38
PROVIDERS: ATTEND Physician Assistant
DX: E03.9 Hypothyroidism, unspecified (principal); D50.8 Other iron deficiency anemias

== ENCOUNTER → 2021-07-30 | Outpatient (REF) | payer OTHER ==
[2021-07-30 13:46] LABS: HEMATOCRIT 38.3 % (36.0-47.0); MEAN CORPUSCULAR HEMOGLOBIN 25.9 pg (27.0-33.0); MEAN CORPUSCULAR HGB CONC 31.3 g/dl (32.0-36.5); MEAN CORPUSCULAR VOLUME 82.5 fl (80.0-96.0); PLATELET COUNT, AUTOMATED 340 10^3/uL (150-450); RED BLOOD COUNT 4.64 10^6/uL (4.00-5.40); WHITE BLOOD COUNT 6.8 10^3/uL (4.0-10.0)
[2021-07-30 14:32] LABS: FREE T4 1.3 NG/DL (0.76-1.46); PERCENT SATURATION 8.6 % (13.2-45.0); THYROID STIMULATING HORMONE 0.532 uIU/ML (0.358-3.740)
== END ==
LOC: M SFHCADAM 10:36
PROVIDERS: ATTEND Physician Assistant
DX: D50.0 Iron deficiency anemia secondary to blood loss (chronic) (principal); E03.9 Hypothyroidism, unspecified

== ENCOUNTER → 2021-07-30 | Outpatient (CLI) | payer OTHER ==
[2021-07-30 13:47] LABS: BASO % 0.4 % (0.0-1.0); EOS # 0.2 10^3/uL (0.0-0.5); EOS % 3.2 % (0.0-3.0); HEMATOCRIT 39.2 % (36.0-47.0); LYMPH # 1.9 10^3/uL (1.5-5.0); LYMPH % 26.9 % (24.0-44.0); MEAN CORPUSCULAR HEMOGLOBIN 25.3 pg (27.0-33.0); MEAN CORPUSCULAR HGB CONC 30.6 g/dl (32.0-36.5); MEAN CORPUSCULAR VOLUME 82.7 fl (80.0-96.0); MONO # 0.5 10^3/uL (0.0-0.8); MONO % 7.1 % (2.0-8.0); NEUTROPHILS # 4.4 10^3/uL (1.5-8.5); PLATELET COUNT, AUTOMATED 338 10^3/uL (150-450); RED BLOOD COUNT 4.74 10^6/uL (4.00-5.40); WHITE BLOOD COUNT 7.1 10^3/uL (4.0-10.0)
[2021-07-30 14:11] LABS: HEMOGLOBIN A1c 5.2 %
[2021-07-30 14:28] LABS: ALBUMIN 3.6 GM/DL (3.2-5.2); ALT/SGPT 26 U/L (12-78); BILIRUBIN,TOTAL 0.2 MG/DL (0.2-1.0); BLOOD UREA NITROGEN 13 MG/DL (7-18); CALCIUM LEVEL 8.9 MG/DL (8.5-10.1); CARBON DIOXIDE LEVEL 28 MEQ/L (21-32); CHLORIDE LEVEL 108 MEQ/L (98-107); CHOLESTEROL LEVEL 146 MG/DL (<200); CHOLESTEROL RISK RATIO 3.842 (<5); FERRITIN 9 NG/ML (8-252); FREE T4 1.28 NG/DL (0.76-1.46); GLOMERULAR FILTRATION RATE > 60.0 (>60); GLUCOSE, FASTING 77 MG/DL (70-100); HDL CHOLESTEROL 38 MG/DL (>40); IRON (FE) 38 UG/DL (50-170); LDL CHOLESTEROL 88 MG/DL (<100); NON-HDL-C 108 MG/DL; PERCENT SATURATION 8.2 % (13.2-45.0); POTASSIUM SERUM 4.7 MEQ/L (3.5-5.1); SODIUM LEVEL 141 MEQ/L (136-145); THYROID STIMULATING HORMONE 0.503 uIU/ML (0.358-3.740); TOTAL 25(OH) VITAMIN D 28.3 NG/ML (30.0-100.0); TOTAL IRON BINDING CAPACITY 461 UG/DL (250-450); TOTAL PROTEIN 7.5 GM/DL (6.4-8.2); TRIGLYCERIDES LEVEL 102 MG/DL (<150); VITAMIN B12 LEVEL 395 PG/ML (247-911)
== END ==
LOC: M ADAMS 10:38
PROVIDERS: ATTEND Nurse Practitioner Family
DX: Z01.812 Encounter for preprocedural laboratory examination (principal); Z13.220 Encounter for screening for lipoid disorders; D51.9 Vitamin B12 deficiency anemia, unspecified; E51.9 Thiamine deficiency, unspecified; E55.9 Vitamin D deficiency, unspecified; E66.01 Morbid (severe) obesity due to excess calories

== ENCOUNTER → 2021-09-26 | Outpatient (REF) | payer OTHER | LOC: M LAB REF 14:29 | PROVIDERS: ATTEND Nurse Practitioner Family | DX: Z01.812 Encounter for preprocedural laboratory examination (principal); E66.01 Morbid (severe) obesity due to excess calories; Z71.3 Dietary counseling and surveillance ==

== ENCOUNTER → 2021-11-26 | Outpatient (CLI) | payer OTHER | LOC: M LAB 10:13 | PROVIDERS: ATTEND Nurse Practitioner Family | DX: Z01.810 Encounter for preprocedural cardiovascular examination (principal); E66.01 Morbid (severe) obesity due to excess calories; I49.9 Cardiac arrhythmia, unspecified; R00.1 Bradycardia, unspecified ==

== ENCOUNTER → 2022-06-17 | Outpatient (REF) | payer OTHER ==
[2022-06-17 17:43] LABS: FREE T4 0.95 NG/DL (0.89-1.76); THYROID STIMULATING HORMONE 8.706 uIU/ML (0.55-4.78)
== END ==
LOC: M SFHCADAM 14:05
PROVIDERS: ATTEND Physician Assistant
DX: E03.9 Hypothyroidism, unspecified (principal)

== ENCOUNTER → 2022-11-17 | Outpatient (REF) | payer OTHER ==
[~2022-11-17] MED LIST changes: -MISO200T56 PO; +MISO200T83 PO
== END ==
LOC: M SFHCADAM 07:55
PROVIDERS: ATTEND Physician Assistant
DX: Z53.9 Procedure and treatment not carried out, unspecified reason (principal); E03.9 Hypothyroidism, unspecified

== ENCOUNTER → 2022-12-21 | Outpatient (REF) | payer OTHER ==
[2022-12-21 17:13] LABS: FREE T4 1.34 NG/DL (0.89-1.76); THYROID STIMULATING HORMONE 2.569 uIU/ML (0.55-4.78)
== END ==
LOC: M SFHCADAM 16:03
PROVIDERS: ATTEND Physician Assistant
DX: E03.9 Hypothyroidism, unspecified (principal)

== ENCOUNTER → 2023-07-27 | Outpatient (REF) | payer OTHER ==
[2023-07-27 13:32] LABS: THYROID STIMULATING HORMONE 0.285 uIU/ML (0.55-4.78)
[2023-07-27 13:33] LABS: FREE T4 1.81 NG/DL (0.89-1.76)
== END ==
LOC: M SFHCADAM 08:40
PROVIDERS: ATTEND Physician Assistant
DX: Z00.00 Encounter for general adult medical examination without abnormal findings (principal); E03.9 Hypothyroidism, unspecified

== ENCOUNTER → 2023-09-12 | Outpatient (REF) | payer OTHER ==
[2023-09-12 18:51] LABS: FREE T4 1.73 NG/DL (0.89-1.76); THYROID STIMULATING HORMONE 0.187 uIU/ML (0.55-4.78)
== END ==
LOC: M LAB REF 16:16
PROVIDERS: ATTEND Physician Assistant
DX: E03.9 Hypothyroidism, unspecified (principal)